=== PATIENT | female | born 2000 | race Caucasian/White ===

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

== ENCOUNTER 2021-10-15 15:28 | Emergency (ER) | payer OTHER ==
[2021-10-15 15:32] VITALS: BP 109/66; PULSE 76; TEMP 98.7; BMI 26.6
[2021-10-15] MEDS ORDERED: FLUORESCEIN NA 1 EA STRIP ONE (17:10)
== END 2021-10-15 17:36 | disposition home or self-care (01) ==
LOC: JERFT 15:28
DX: T15.91XA Foreign body on external eye, part unspecified, right eye, initial encounter (principal)
CPT/HCPCS: 99283-25